=== PATIENT | male | born 1995 | race Caucasian/White ===

== ENCOUNTER 2019-01-29 21:41 | Emergency (ER) | payer OTHER, SELFPAY ==
[2019-01-29 21:44] VITALS: BP 145/86; PULSE 75; RESP 16; TEMP 36.6; O2SAT 97
--- NOTE | 2019-01-29 23:17 | ED.UPPEXIN ---
HPI - Extremity Injury (Upper) General Chief Complaint: Extremity Injury, Upper Stated Complaint: Right Shoulder Px Time Seen by Provider: 01/29/19 23:17 Source: patient Mode of arrival: Ambulatory Limitations: no limitations History of Present Illness HPI narrative: Usually takes well 23-year-old male who comes emergency department with complaint of right shoulder pain. 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 The most recent was 3 years ago. He states he intermittently gets pain in his shoulder and can sometimes be sitting and nonactive when it occurs. This evening he states he had significant increase in his pain while sitting on the couch watching TV. 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 He has not any fevers or chills. He has not had any redness, swelling or warmth to the shoulder. He states pain increased with movement but he can find certain positions of comfort. He denies any new neck pain or back pain. He typically takes ibuprofen or Tylenol but did not take anything for pain this evening. He did tell the nursing staff he was interested in getting an MRI. He denies any chest pain or shortness of breath, no nausea, no vomiting no other GI or urinary symptoms. He states earlier he had some pain radiating down his arm towards his wrist but denies any numbness, weakness or loss of sensation. Related Data Previous Rx's Medication Instructions Recorded meloxicam [Mobic] 7.5 mg PO DAILY #20 tab 01/29/19 Allergies Allergy/AdvReac Type Severity Reaction Status Date / Time No Known Drug Allergies Allergy Verified 01/29/19 21:45 Review of Systems Review of Systems ROS Unobtainable: All systems reviewed & are unremarkable except as noted in HPI and below Patient History Social History Smoking Status: Current every day smoker tobacco type: vaping Exam Narrative Exam Narrative: GENERAL: Alert and oriented x three, obese, well-appearing male in mild distress HEENT: Head normocephalic, atraumatic, EOMI, pupils reactive, face symmetric, moist mucous membranes NECK: Supple, full range of motion CARDIOVASCULAR: Regular rate and rhythm without murmurs, rubs or gallops. RESPIRATORY: Breath sounds equal bilaterally, no wheezes rales or rhonchi. ABDOMEN: Soft, nontender. Normoactive bowel sounds all 4 quadrants. No guarding or rebound, rigidity, no mass EXTREMITIES: Decreased range of motion at right shoulder secondary to pain although I am able to flex extend and internally externally rotate moderately. Patient does not have any bony tenderness to palpation, very mild tenderness over the biceps tendon but not increased with movement. He also has a little bit of tenderness on the posterior shoulder just above the scapula, this seems to be the point of most discomfort. There is no warmth, there is no swelling. No clubbing or edema. Neurovascularly intact 2+ radial pulse jaspal are equal bilaterally, normal sensation throughout both upper extremities. NEUROLOGICAL: Cranial nerves II through XII grossly intact. Moving all extremities SKIN: Warm, dry, no petechiae, no rashes or lesions. Initial Vital Signs Initial Vital Signs: Vital Signs Temperature 97.9 F 01/29/19 21:44 Pulse Rate 75 01/29/19 21:44 Respiratory Rate 16 01/29/19 21:44 Blood Pressure 145/86 H 01/29/19 21:44 Pulse Oximetry 97 01/29/19 21:44 Course Orders Ordered: Discontinued Medications Meloxicam (Mobic) 15 mg PO NOW ONE Stop: 01/29/19 23:29 Last Admin: 01/29/19 23:42 Dose: Not Given [facility] Vital Signs Vital signs: Vital Signs - 8 hr 01/29/19 21:44 Temperature 97.9 F Pulse Rate 75 Respiratory Rate 16 Blood Pressure 145/86 H Pulse Oximetry 97 MDM - Extremity Injury (Upper) MDM Narrative Medical decision making narrative: Discussed with patient we could do some imaging but this is unlikely to find any new fractures and will likely give us minimal information. Patient defers any x-ray imaging. We did discuss that I would recommend following up with Orthopedic surgery as he has had pain intermittently. [facility] [place] [employer] and can self refer or through primary care [place] [employer]. We discussed trying a prescription of Mobic to see if this is more helpful that ibuprofen, he had not taking anything this evening. Patient defers any ibuprofen or Tylenol here, we do not have any Mobic available through the night pharmacy. Discharge Plan Departure Patient Disposition: Home Clinical Impression: Localized pain of right shoulder joint Discharge Date/Time: 01/29/19 23:20 Instructions: DI for Shoulder Pain Activity Restrictions/Additional Instructions: Follow up with orthopedic surgery in the next week for recheck. Take mobic, you may take twice daily as needed for pain. Do not take with ibuprofen. You may take tylenol up to 1000mg every 8 hours as needed with mobic. Return for fevers greater than 100.4F, redness, warmth or swelling of your shoulder, rapidly worsening, pain, new weakness, numbness or loss of sensation or other new or concerning symptoms. Prescriptions: New meloxicam [Mobic] 7.5 mg tablet 7.5 mg PO DAILY Qty: 20 RF: 0
--- NOTE | 2019-01-29 23:58 | PC.NURSE ---
Patient left without prescription or DC papers. His exit was unwitnessed by any staff members. I called his cell phone and he answered. I told him he left wihtout his Meloxicam prescription and paperwork and asked if he would like to come back and get it. He said no I don't want it. I'll just take ibuprofen.
== END 2019-01-29 23:20 | disposition home or self-care (01) ==
PROVIDERS: Emergency Provider Emergency Medicine
DX: M25.511 Pain in right shoulder (principal)
CPT/HCPCS: 99282; 99283